=== PATIENT | male | born 1960 | race African-American/Black ===

== ENCOUNTER 2019-05-20 21:54 | Emergency (ER) | payer OTHER ==
[~2019-05-20] VITALS: Ht 175.3 cm; Wt 79.4 kg
--- NOTE | 2019-05-20 22:05 | NUR ---
PT BIB SELF C/O SI "I WANT TO SHOOT MY SELF." DENIES HI, PT IS AAOX4, NOT IN RESPIRATORY DISTRESS, V/S STABLE, KEPT RESTED AND COMFORTABLE, WILL CONTINUE TO MONITOR, SITTER AT BEDSIDE.
--- NOTE | 2019-05-20 22:06 | NUR ---
PT CAME TO THE ED C/O SI W/ A PLAN TO SHOOT HIMSELF. DENIES HI. PT AAOX4, VSS, RR EVEN AND UNLABORED ON RA W NAD NOTED. PT PLACED ON SUICIDE PRECAUTIONS. SITTER AT BEDSIDE FOR SAFETY. WILL CONTINUE TO MONITOR
--- NOTE | 2019-05-20 22:08 | NUR ---
URINE SPECIMEN COLLECTED AND SENT TO LAB
--- NOTE | 2019-05-20 22:12 | NUR ---
SECURITY AT BEDSIDE FOR WANDING
[2019-05-20 22:18] LABS: APPEARANCE,URINE Clear (CLEAR); BILIRUBIN,URINE Negative (NEGATIVE); BLOOD, URINE Trace-lysed Ery/uL (NEGATIVE); COLOR,URINE Yellow (YELLOW); KETONES,URINE Negative (NEGATIVE); LEUKOCYTE ESTERASE ,URINE Negative (NEGATIVE); NITRITE, URINE Negative (NEGATIVE); PH,URINE 5.5 (5.0-8.0); PROTEIN,URINE Negative (NEGATIVE); UGLUCOSE Negative (NEGATIVE); UROBILINOGEN,URINE 0.2 EU/dL (0.2)
--- NOTE | 2019-05-20 22:20 | NUR ---
ER PHLEB AT BEDSIDE FOR BLOOD DRAW.
[2019-05-20 22:30] LABS: BASOPHILS # (AUTO) 0.1 /CMM (0.0-0.2); EOSINOPHILS % (AUTO) 1.3 % (0.0-6.0); HEMATOCRIT 43 % (39-51); HEMOGLOBIN 14.6 g/dL (13.5-17.5); LYMPHOCYTES # (AUTO) 2.6 /CMM (0.8-4.8); LYMPHOCYTES % (AUTO) 33.2 % (20.0-44.0); MEAN CORPUSCULAR HGB CONC 34 g/dl (31.0-36.0); MEAN CORPUSCULAR VOLUME 78 fL (80-96); MONOCYTES # (AUTO) 1.4 /CMM (0.1-1.30); MONOCYTES % (AUTO) 18.3 % (2.0-12.0); NEUTROPHILS # (AUTO) 3.6 /CMM (1.8-8.9); NEUTROPHILS % (AUTO) 46.2 % (43.0-81.0); PLATELET COUNT (AUTO) 250 /CMM (150-450); RED BLOOD CELL COUNT(AUTO) 5.45 MIL/uL (4.5-6.0); WHITE BLOOD COUNT (AUTO) 7.9 K/uL (4.3-11.0)
[2019-05-20 22:32] LABS: CALCIUM, SERUM 9.1 mg/dL (8.5-10.1); CARBON DIOXIDE 32 mmol/L (21-32); CHLORIDE 102 mmol/L (98-107); CREATININE 1.5 mg/dL (0.6-1.3); GLUCOSE 115 mg/dL (74-106); POTASSIUM 4.2 mmol/L (3.5-5.1); SODIUM SERUM 140 mmol/L (136-145); UREA NITROGEN, BLOOD 19 mg/dL (7-18)
[2019-05-20 22:37] LABS: ALANINE AMINOTRANSFERASE 35 U/L (12-78); ALCOHOL, BLOOD < 3 mg/dL (0-0); ALKALINE PHOSPHATASE 64 U/L (46-116); ASPARTATE AMINOTRANSFERASE 20 U/L (15-37); BILIRUBIN,DIRECT 0.1 mg/dL (0.0-0.2); BILIRUBIN,TOTAL 0.5 mg/dL (0.2-1.0); TOTAL PROTEIN, SERUM 8.2 g/dL (6.4-8.2)
[2019-05-20 22:38] LABS: ACETAMINOPHEN 0 ug/ml (10-30); SALICYLATE 1.1 mg/dL (2.8-20.0)
[2019-05-20 22:39] LABS: BACTERIA,URINE Few /HPF (None Seen); MUCUS,URINE Few /LPF (None Seen); SQUAMOUS EPITHELIAL CELL,UR Rare /HPF (None Seen)
[2019-05-20 23:09] LABS: LYMPHOCYTES % (MANUAL) 35 % (16-48); MONOCYTES % (MANUAL) 22 % (0-11.0)
[2019-05-20 23:10] LABS: EOSINOPHILS % (MANUAL) 2 % (0-4); NEUTROPHILS % (MANUAL) 41 (42-76)
--- NOTE | 2019-05-21 02:09 | NUR ---
PT RESTING COMFORTABLY IN BED. VSS. NO ACUTE DISTRESS NOTED. SITTER AT BEDSIDE FOR SAFETY. WILL CONTINUE TO MONITOR
[2019-05-21 02:11] VITALS: BP 132/82
--- NOTE | 2019-05-21 02:30 | NUR ---
Pt accepted to [facility] by Dr Patterson. Unit 1, Room 106-A. # for report [phone]
--- NOTE | 2019-05-21 02:35 | NUR ---
CALLED CALL THE CAR FOR BLS TRANSPORT TO [facility]. ETA 1.5-2 HRS.
--- NOTE | 2019-05-21 02:41 | NUR ---
REPORT GIVEN TO JIAN ESCOBAR Addendum: 05/21/19 at 0242 by MEG REPORT GIVEN TO JIAN ESCOBAR
--- NOTE | 2019-05-21 03:16 | NUR ---
REPORT GIVEN TO EMS. PT TRANSFERRED IN [facility] IN STABLE CONDITION
== END 2019-05-21 03:18 ==
LOC: ER 21:57
DX: F32.9 Major depressive disorder, single episode, unspecified (principal); R45.851 Suicidal ideations; N28.9 Disorder of kidney and ureter, unspecified; F17.200 Nicotine dependence, unspecified, uncomplicated; F14.10 Cocaine abuse, uncomplicated; Z59.0 Homelessness
CPT/HCPCS: 36415; 80048; 80076; 80305; 80307; 80329; 81001; 85025; 99285; 99406; G0480; 81000-TC

== ENCOUNTER 2019-07-31 11:14 | Emergency (ER) | payer OTHER ==
[~2019-07-31] VITALS: Ht 180.3 cm; Wt 83.9 kg
--- NOTE | 2019-07-31 11:58 | NUR ---
CAME IN FOR HEARING VOICES TELLING HIM TO JUMP OFF A FREEWAY OVERPASS,WANTS TO COME IN VOLUNTARILY TO PSYCH FACILITY, TO ER BED 11, HOOKED TO MONITOR, CHANGED TO HOSP GOWN, WARM BLANKET PROVIDED, AWAITING MD BAH. SITTER AT BEDSIDE FOR SAFETY
--- NOTE | 2019-07-31 12:00 | NUR ---
DR NORMAN AT BEDSIDE
--- NOTE | 2019-07-31 12:05 | NUR ---
FEDERICO PRESTON CALLED FOR ASSISTANCE IN [place] TO PSYCH FACILITY
--- NOTE | 2019-07-31 12:14 | NUR ---
LITHOGRAPHER APPRENTICE received a call from ED CRN Remberto in regards to pt seeking voluntary psychiatric hospitalization. LITHOGRAPHER APPRENTICE called [facility] and initiated voluntary psychiatric hospitalization. LITHOGRAPHER APPRENTICE to send clinicals once labs are done and pt is medically cleared for psychiatric admission.
[2019-07-31 12:27] LABS: APPEARANCE,URINE Clear (CLEAR); BILIRUBIN,URINE Negative (NEGATIVE); BLOOD, URINE Negative Ery/uL (NEGATIVE); COLOR,URINE Yellow (YELLOW); KETONES,URINE Negative (NEGATIVE); LEUKOCYTE ESTERASE ,URINE Negative (NEGATIVE); NITRITE, URINE Negative (NEGATIVE); PH,URINE 5.5 (5.0-8.0); PROTEIN,URINE Negative (NEGATIVE); UGLUCOSE Negative (NEGATIVE); UROBILINOGEN,URINE 0.2 EU/dL (0.2)
[2019-07-31 12:33] LABS: BASOPHILS # (AUTO) 0.1 /CMM (0.0-0.2); BASOPHILS % (AUTO) 0.8 % (0.0-2.0); EOSINOPHILS % (AUTO) 2.7 % (0.0-6.0); HEMATOCRIT 43 % (39-51); HEMOGLOBIN 14.4 g/dL (13.5-17.5); LYMPHOCYTES # (AUTO) 3.1 /CMM (0.8-4.8); LYMPHOCYTES % (AUTO) 46.5 % (20.0-44.0); MEAN CORPUSCULAR HGB CONC 34 g/dl (31.0-36.0); MEAN CORPUSCULAR VOLUME 80 fL (80-96); MONOCYTES # (AUTO) 0.7 /CMM (0.1-1.30); MONOCYTES % (AUTO) 10.6 % (2.0-12.0); NEUTROPHILS # (AUTO) 2.6 /CMM (1.8-8.9); NEUTROPHILS % (AUTO) 39.4 % (43.0-81.0); PLATELET COUNT (AUTO) 252 /CMM (150-450); RED BLOOD CELL COUNT(AUTO) 5.34 MIL/uL (4.5-6.0); WHITE BLOOD COUNT (AUTO) 6.6 K/uL (4.3-11.0)
[2019-07-31 12:42] LABS: CALCIUM, SERUM 8.9 mg/dL (8.5-10.1); CREATININE 1.3 mg/dL (0.6-1.3); POTASSIUM 4.1 mmol/L (3.5-5.1)
[2019-07-31 12:47] LABS: ALBUMIN 3.5 g/dL (3.4-5.0); BILIRUBIN,DIRECT 0.1 mg/dL (0.0-0.2); BILIRUBIN,TOTAL 0.2 mg/dL (0.2-1.0); SALICYLATE 1.7 mg/dL (2.8-20.0); TOTAL PROTEIN, SERUM 7.3 g/dL (6.4-8.2)
--- NOTE | 2019-07-31 14:11 | NUR ---
FOOD TRAY PROVIDED, TOLERATING PO WELL.
--- NOTE | 2019-07-31 15:48 | NUR ---
PNEUMATIC JACK OPERATOR faxed clinicals to [facility] intake for voluntary hospitalizations.
--- NOTE | 2019-07-31 16:06 | NUR ---
PATIENT IN BED AWAKE, WATCHING TELEVISION, HOOKED TO MONITOR, SITTER AT BEDSIDE FOR SAFETY. WILL CONTINUE TO MONITOR ACCORDINGLY
--- NOTE | 2019-07-31 17:38 | NUR ---
CALLED [facility] [phone] GOING TO [place] FIRST THEN HEADED HERE.
--- NOTE | 2019-07-31 17:59 | NUR ---
PATIENT IN BED AWAKE, WATCHING TELEVISION. HOOKED TO MONITOR. VSS. SITTER AT BEDSIDE. WILL CONTINUE TO MONITOR ACCORDINGLY.
--- NOTE | 2019-07-31 19:02 | NUR ---
PATIENT IN BED AWAKE, WATCHING TELEVISION. HOOKED TO MONITOR. VSS. SITTER AT BEDSIDE. WILL CONTINUE TO MONITOR ACCORDINGLY.
--- NOTE | 2019-07-31 19:27 | NUR ---
REPORT GIVEN TO TATE VILLAR FOR VAN
--- NOTE | 2019-07-31 20:15 | NUR ---
CRISIS JUNIOR HIGH SCHOOL TEACHER, PINKY AT BEDSIDE
--- NOTE | 2019-07-31 20:55 | NUR ---
PT ACCEPTED AT [facility] DR. huang / DR roberts
--- NOTE | 2019-07-31 22:17 | NUR ---
PT RESTING COMFORTABLY IN BED. FOOD PROVIDED. NO ACUTE DISTRESS NOTED. SITTER AT BEDSIDE FOR SAFETY.
--- NOTE | 2019-08-01 00:25 | NUR ---
[facility] 60-90 MINUTES
--- NOTE | 2019-08-01 00:39 | NUR ---
CALL FROM CALL THE CAR. NO AVAILABLE AMBULANCE UNTIL 1100
--- NOTE | 2019-08-01 01:54 | NUR ---
[phone] QEI [phone] FOR REPORT.
--- NOTE | 2019-08-01 06:11 | NUR ---
PT RESTING COMFORTABLY IN BED. VSS. NO ACUTE DISTRESS NOTED. SITTER AT BEDSIDE FOR SAFETY. WILL CONTINUE TO MONITOR
--- NOTE | 2019-08-01 07:32 | NUR ---
endorsement received from erin milian for greg
--- NOTE | 2019-08-01 08:51 | NUR ---
breakfast tray provided, patient tolerating PO well
--- NOTE | 2019-08-01 09:49 | NUR ---
CALLED CALL THE CAR FOR CONFIRMATION OF CUSTOMER SUCCESS SPECIALIST. [facility] WILL BE PICKING UP THE PT AT 1100.
--- NOTE | 2019-08-01 09:52 | NUR ---
tried to call so johnny magana for report, was placed on hold, no answer
--- NOTE | 2019-08-01 11:16 | NUR ---
patient in bed awake, watching television, hooked to monitor, VSS. sitter at bedside for safety, will continue to monitor
--- NOTE | 2019-08-01 12:41 | NUR ---
[facility] in stable condition. Patient will be brought to [facility].
[2019-08-01 12:42] VITALS: BP 105/58
--- NOTE | 2019-08-01 12:49 | NUR ---
report given to Minesh VILLAR of [facility]
== END 2019-08-01 12:45 ==
LOC: ER 11:19
DX: R45.851 Suicidal ideations (principal); F29 Unspecified psychosis not due to a substance or known physiological condition
CPT/HCPCS: 36415; 80048; 80076; 80305; 80307; 80329; 81001; 85025; 99285; G0480; 81000-TC

== ENCOUNTER 2019-08-12 01:40 | Emergency (ER) | payer OTHER ==
[~2019-08-12] VITALS: Ht 180.3 cm; Wt 81.6 kg
--- NOTE | 2019-08-12 01:51 | NUR ---
PT CAME TO THE ED C/O SI W/ A PLAN TO JUMP OFF THE FREEWAY. NO HI. PT AAOX4, VSS, RESPIRATIONS EVEN AND UNLABORED ON RA W/ NAD NOTED. PT CHANGED INTO GOWN, BELONGINGS PLACED TO LOCKER, SUICIDE PRECAUTIONS IMPLEMENTED. SITTER AT BEDSIDE FOR SAFETY.
--- NOTE | 2019-08-12 01:53 | NUR ---
URINE SENT TO LAB
--- NOTE | 2019-08-12 02:07 | NUR ---
PERSONAL INJURY SPECIALIST AT BEDSIDE FOR LABS
[2019-08-12 02:13] LABS: APPEARANCE,URINE Clear (CLEAR); BILIRUBIN,URINE SMALL (NEGATIVE); BLOOD, URINE Trace-lysed Ery/uL (NEGATIVE); COLOR,URINE Orange (YELLOW); KETONES,URINE Negative (NEGATIVE); LEUKOCYTE ESTERASE ,URINE Negative (NEGATIVE); NITRITE, URINE Negative (NEGATIVE); PH,URINE 5.5 (5.0-8.0); PROTEIN,URINE 100 mg/dl (NEGATIVE); UGLUCOSE Negative (NEGATIVE)
[2019-08-12 02:30] LABS: BASOPHILS # (AUTO) 0.1 /CMM (0.0-0.2); BASOPHILS % (AUTO) 0.7 % (0.0-2.0); HEMATOCRIT 44 % (39-51); HEMOGLOBIN 15.1 g/dL (13.5-17.5); LYMPHOCYTES # (AUTO) 3.1 /CMM (0.8-4.8); LYMPHOCYTES % (AUTO) 34.4 % (20.0-44.0); MEAN CORPUSCULAR HGB CONC 34 g/dl (31.0-36.0); MEAN CORPUSCULAR VOLUME 79 fL (80-96); MONOCYTES # (AUTO) 1.3 /CMM (0.1-1.30); MONOCYTES % (AUTO) 14.1 % (2.0-12.0); NEUTROPHILS # (AUTO) 4.3 /CMM (1.8-8.9); NEUTROPHILS % (AUTO) 47.8 % (43.0-81.0); PLATELET COUNT (AUTO) 271 /CMM (150-450); RED BLOOD CELL COUNT(AUTO) 5.61 MIL/uL (4.5-6.0)
[2019-08-12 02:33] LABS: CALCIUM, SERUM 9.3 mg/dL (8.5-10.1); CARBON DIOXIDE 28 mmol/L (21-32); CHLORIDE 100 mmol/L (98-107); CREATININE 1.4 mg/dL (0.6-1.3); GLUCOSE 104 mg/dL (74-106); POTASSIUM 3.6 mmol/L (3.5-5.1); SODIUM SERUM 138 mmol/L (136-145); UREA NITROGEN, BLOOD 18 mg/dL (7-18)
[2019-08-12 02:38] LABS: ACETAMINOPHEN < 2 ug/ml (10-30); ALANINE AMINOTRANSFERASE 27 U/L (12-78); ALBUMIN 4.2 g/dL (3.4-5.0); ALCOHOL, BLOOD < 3 mg/dL (0-0); ALKALINE PHOSPHATASE 63 U/L (46-116); ASPARTATE AMINOTRANSFERASE 24 U/L (15-37); BILIRUBIN,DIRECT 0.3 mg/dL (0.0-0.2); BILIRUBIN,TOTAL 1.1 mg/dL (0.2-1.0); SALICYLATE 1.9 mg/dL (2.8-20.0); TOTAL PROTEIN, SERUM 8.8 g/dL (6.4-8.2)
[2019-08-12 02:45] LABS: BACTERIA,URINE Few /HPF (None Seen); RBC,URINE 0-2 /HPF (0-2); SQUAMOUS EPITHELIAL CELL,UR Few /HPF (None Seen); WBC,URINE 0-2 /HPF (0-3)
[2019-08-12 02:46] LABS: MUCUS,URINE Many /LPF (None Seen)
--- NOTE | 2019-08-12 03:28 | NUR ---
PT RESTING IN BED COMFORTABLY. VSS. NO ACUTE DISTRESS NOTED. SITTER AT BEDSIDE FOR SAFETY. WILL CONTINUE TO MONITOR
--- NOTE | 2019-08-12 04:19 | NUR ---
Patient accepted to [facility] by Dr Patterson. unit 2, # for report. [phone]
--- NOTE | 2019-08-12 04:24 | NUR ---
REPORT GIVEN TO JIAN IRVIN @ [facility]
--- NOTE | 2019-08-12 06:05 | NUR ---
PT ASLEEP. VSS. NO ACUTE DISTRESS NOTED. SITTER AT BEDSIDE FOR SAFETY. WILL CONTINUE TO MONITOR
--- NOTE | 2019-08-12 06:57 | NUR ---
ATTEMPTED TO CALL FOR TRANSPORT AGAIN
--- NOTE | 2019-08-12 07:09 | NUR ---
Call the car called for transport. #[phone]. pending eta
--- NOTE | 2019-08-12 07:14 | NUR ---
[facility]A [facility] 20 MINS
[2019-08-12 07:35] VITALS: BP 128/81
--- NOTE | 2019-08-12 07:37 | NUR ---
patient picked up by private ambulance going to [facility], in no distress, denies any pain at this time. All belongings given to patient.
== END 2019-08-12 07:36 ==
LOC: ER 01:43
DX: F32.9 Major depressive disorder, single episode, unspecified (principal); R45.851 Suicidal ideations; F25.0 Schizoaffective disorder, bipolar type; F14.10 Cocaine abuse, uncomplicated; F17.210 Nicotine dependence, cigarettes, uncomplicated
CPT/HCPCS: 36415; 80048; 80076; 80305; 80307; 80329; 81001; 85025; 99285; 99406; G0480; 81000-TC

== ENCOUNTER 2020-04-22 19:24 | Emergency (ER) | payer OTHER ==
[~2020-04-22] VITALS: Ht 180.3 cm; Wt 81.6 kg
--- NOTE | 2020-04-22 22:20 | NUR ---
URINE COLLECTED, SENT TO LAB.
--- NOTE | 2020-04-22 22:20 | NUR ---
POWER ELECTRONICS RESEARCH ENGINEER AT BEDSIDE FOR LABS
--- NOTE | 2020-04-22 22:20 | NUR ---
CALLED FOR COVID SWAB
--- NOTE | 2020-04-22 22:26 | NUR ---
COVID SWAB SENT TO LAB
[2020-04-22 22:32] LABS: BILIRUBIN,URINE NEGATIVE (NEGATIVE); COLOR,URINE YELLOW (YELLOW); LEUKOCYTE ESTERASE ,URINE NEGATIVE (NEGATIVE); NITRITE, URINE NEGATIVE (NEGATIVE); PROTEIN,URINE NEGATIVE (NEGATIVE); UGLUCOSE NEGATIVE (NEGATIVE); UROBILINOGEN,URINE 0.2 EU/dL (0.2)
[2020-04-22 22:33] LABS: BASOPHILS # (AUTO) 0.1 /CMM (0.0-0.2); BASOPHILS % (AUTO) 0.5 % (0.0-2.0); EOSINOPHILS % (AUTO) 3.1 % (0.0-6.0); HEMATOCRIT 43 % (39-51); HEMOGLOBIN 14.7 g/dL (13.5-17.5); LYMPHOCYTES # (AUTO) 3.2 /CMM (0.8-4.8); LYMPHOCYTES % (AUTO) 27.6 % (20.0-44.0); MEAN CORPUSCULAR HGB CONC 34 g/dl (31.0-36.0); MEAN CORPUSCULAR VOLUME 79 fL (80-96); MONOCYTES # (AUTO) 1.4 /CMM (0.1-1.30); MONOCYTES % (AUTO) 11.9 % (2.0-12.0); NEUTROPHILS # (AUTO) 6.7 /CMM (1.8-8.9); NEUTROPHILS % (AUTO) 56.9 % (43.0-81.0); PLATELET COUNT (AUTO) 274 /CMM (150-450); RED BLOOD CELL COUNT(AUTO) 5.44 MIL/uL (4.5-6.0); WHITE BLOOD COUNT (AUTO) 11.7 K/uL (4.3-11.0)
[2020-04-22 22:41] LABS: CALCIUM, SERUM 9.4 mg/dL (8.5-10.1); CARBON DIOXIDE 30 mmol/L (21-32); CHLORIDE 104 mmol/L (98-107); CREATININE 1.2 mg/dL (0.6-1.3); GLUCOSE 85 mg/dL (74-106); POTASSIUM 4.8 mmol/L (3.5-5.1); SODIUM SERUM 141 mmol/L (136-145); UREA NITROGEN, BLOOD 14 mg/dL (7-18)
[2020-04-22 22:47] LABS: ALANINE AMINOTRANSFERASE 35 U/L (12-78); ALCOHOL, BLOOD < 3 mg/dL (0-0); ALKALINE PHOSPHATASE 64 U/L (46-116); ASPARTATE AMINOTRANSFERASE 27 U/L (15-37); BILIRUBIN,DIRECT 0.2 mg/dL (0.0-0.2); BILIRUBIN,TOTAL 0.6 mg/dL (0.2-1.0); TOTAL PROTEIN, SERUM 8.3 g/dL (6.4-8.2)
[2020-04-22 22:48] LABS: ACETAMINOPHEN 0 ug/ml (10-30)
[2020-04-22 22:50] LABS: BACTERIA,URINE None seen /HPF (None Seen); MUCUS,URINE Few /LPF (None Seen); RBC,URINE 0-2 /HPF (0-2); SQUAMOUS EPITHELIAL CELL,UR Few /HPF (None Seen)
--- NOTE | 2020-04-22 23:00 | NUR ---
Call from lab. Rapid covid negative.
--- NOTE | 2020-04-22 23:31 | NUR ---
Facesheet and clinicals faxed to Monica Valentine.
--- NOTE | 2020-04-23 07:09 | NUR ---
Pt accepted to [facility]. Dr Murillo, # for report [phone]
--- NOTE | 2020-04-23 07:11 | NUR ---
CALLED [facility] FOR TRANSPORT TO [facility]. ETA 30-45 MINUTES.
--- NOTE | 2020-04-23 07:21 | NUR ---
CALLED FOR REPORT, WAS TOLD TO CALL BACK
--- NOTE | 2020-04-23 08:10 | NUR ---
CALLED [facility], CHARGE NURSE BESSY UNABLE TO TAKE REPORT AT THIS TIME. GAVE MY CALL BACK NUMBER FOR REPORT AND INFORMED THEM THAT THE TRANSPORTATION IS HERE.
[2020-04-23 08:12] VITALS: BP 145/83
--- NOTE | 2020-04-23 08:12 | NUR ---
REPORT GIVEN TO PATTERN FINISHER. PATIENT A/OX4, IN STABLE CONDITION, WILL BE TRANSFERRED TO [facility].
--- NOTE | 2020-04-23 08:43 | NUR ---
report given to Benita at [facility]
== END 2020-04-23 08:19 ==
LOC: ER 19:31
DX: R45.851 Suicidal ideations (principal); F19.10 Other psychoactive substance abuse, uncomplicated; Z82.49 Family history of ischemic heart disease and other diseases of the circulatory system; R82.998 Other abnormal findings in urine; F25.9 Schizoaffective disorder, unspecified; Z20.822 Contact with and (suspected) exposure to COVID-19
CPT/HCPCS: 36415; 80048; 80076; 80299; 80307; 80320; 81001; 85025; 87086; 87426; 99285; C9803; G0480

== ENCOUNTER 2020-08-03 07:57 | Emergency (ER) | payer OTHER ==
[~2020-08-03] VITALS: Ht 180.3 cm; Wt 83.9 kg
--- NOTE | 2020-08-03 08:00 | NUR ---
PT SELF PRESENTS TO ED, AMBULATORY W/ STYEADY GAIT C/O DEPRESSION, SUICIDAL W. PLAN TO "CUT HIS THROAT" PT IS COOPERATIVE TO STAFF. DENIES ANY PAIN OR DISCOMFORT. PT STATES THAT HE WANTS TO GO ON [facility]OLUNTARY PS[facility]CH [facility] STABLE VITALS. AWAITING MD BAH.
--- NOTE | 2020-08-03 08:02 | NUR ---
DR MUÑOZ AT BEDSIDE FOR EVAL.
--- NOTE | 2020-08-03 08:19 | NUR ---
CHRONIC DISEASE EPIDEMIOLOGIST AT BEDSIDE FOR BLOOD DRAW.
[2020-08-03 08:25] LABS: BASOPHILS # (AUTO) 0.1 K/uL (0.0-0.2); BASOPHILS % (AUTO) 0.8 % (0.0-2.0); EOSINOPHILS % (AUTO) 0.5 % (0.0-6.0); HEMATOCRIT 41 % (39-51); LYMPHOCYTES # (AUTO) 2.1 K/uL (0.8-4.8); LYMPHOCYTES % (AUTO) 24.5 % (20.0-44.0); MEAN CORPUSCULAR HGB CONC 34 g/dl (31.0-36.0); MEAN CORPUSCULAR VOLUME 80 fL (80-96); MONOCYTES # (AUTO) 0.9 K/uL (0.1-1.30); NEUTROPHILS # (AUTO) 5.4 K/uL (1.8-8.9); NEUTROPHILS % (AUTO) 63.2 % (43.0-81.0); PLATELET COUNT (AUTO) 249 K/uL (150-450); RED BLOOD CELL COUNT(AUTO) 5.13 MIL/uL (4.5-6.0); WHITE BLOOD COUNT (AUTO) 8.5 K/uL (4.3-11.0)
[2020-08-03 08:28] LABS: BILIRUBIN,URINE Negative (NEGATIVE); COLOR,URINE YELLOW (YELLOW); LEUKOCYTE ESTERASE ,URINE Negative (NEGATIVE); NITRITE, URINE Negative (NEGATIVE); PH,URINE 7.5 (5.0-8.0); PROTEIN,URINE Trace mg/dl (NEGATIVE); UGLUCOSE Negative (NEGATIVE); UROBILINOGEN,URINE 0.2 EU/dL (0.2)
[2020-08-03 08:34] LABS: CALCIUM, SERUM 9.4 mg/dL (8.5-10.1); CARBON DIOXIDE 31 mmol/L (21-32); CHLORIDE 104 mmol/L (98-107); CREATININE 1.2 mg/dL (0.6-1.3); GLUCOSE 104 mg/dL (74-106); POTASSIUM 4.7 mmol/L (3.5-5.1); SODIUM SERUM 140 mmol/L (136-145); UREA NITROGEN, BLOOD 15 mg/dL (7-18)
[2020-08-03 08:39] LABS: BACTERIA,URINE None seen /HPF (None Seen); RBC,URINE NONE SEEN /HPF (0-2); SQUAMOUS EPITHELIAL CELL,UR Rare /HPF (None Seen); WBC,URINE 0-2 /HPF (0-3)
[2020-08-03 08:46] LABS: ALANINE AMINOTRANSFERASE 33 U/L (12-78); ALBUMIN 3.8 g/dL (3.4-5.0); ALKALINE PHOSPHATASE 57 U/L (46-116); ASPARTATE AMINOTRANSFERASE 24 U/L (15-37); BILIRUBIN,DIRECT 0.1 mg/dL (0.0-0.2); BILIRUBIN,TOTAL 0.2 mg/dL (0.2-1.0)
[2020-08-03 08:48] LABS: ACETAMINOPHEN 0 ug/ml (10-30); ALCOHOL, BLOOD < 3 mg/dL (0-0)
--- NOTE | 2020-08-03 11:05 | NUR ---
Plan: [facility]ORY referred pt. to [facility] [[address] [place] [address] FAX:[phone]] for inpatient psychiatric treatment.
--- NOTE | 2020-08-03 11:05 | NUR ---
SS Consult: SS Consult requested for SI, Homelessness, and drug use. The pt. is a 59 year old black male who presents to the ED with C/O SI w/plan to "cut his throat". The pt. appears unkempt, A&O X4 and makes good eye contact. Pt.'s mood is euthymic. The pt. states he has been experiencing SI since yesterday and has a plan to "cut my throat". Per pt., he is experiencing AH that tell him, "that I am no good and I do not deserve to live". GLORY offered pt. voluntary admission to a psych facility for treatment and pt. is agreeable. Pt. states he has been homeless for the past 6 months [address]. Pt. states denies ETOH use and admits using Cocaine 2 days ago and states he does not use often. Pt. states he has a Hx. of Schizoaffective disorder and is currently on Seroquel, Buspar and Prozac. Pt. denies HI and denies visual hallucinations. Plan: SW referred pt. to [facility] [[address] [place] [address] FAX:[phone]] for inpatient psychiatric treatment. Patient signed homeless waiver & it was placed in the pt.'s chart. SW provided pt. with the following homeless resources and pt. accepted them: Substance Abuse resources provided included: [facility] Substance Abuse Self-Helpline (SAS) ; CRI -HELP 98581 [facility]. [place] 9[address] ; [facility] [address]22 [facility] [address] ; [facility] Rehabilitation Program 03074 [facility] [address] ; [facility] 400 [facility] [address] ; [facility] 7210 [facility] [address] ; [facility] 909 [facility] [phone] ; [facility] Substance Abuse Helpline(SAS)-[facility] ; Action [facility] ; [facility] [place]; [facility] [place]; Cri-Help [place]; I-ADARP Inter Agency Drug Abuse Recovery [place]; [facility]; [place] [place] [facility] Start; [facility] [place]; [facility], [facility] Joseline Benson; Alcoholics Anonymous -SFV; Vo-Tuba-Wnliazm ; Marijuana Anonymous -SFV; Narcotics Anonymous www.na.org; Year-round shelters: [place] [address] [place], [place] [address] ; [facility] [facility] [place] [address] [place] [address]; [place] [facility] Phwtfhe8106 [facility] [address] Winter Shelters: Zac BarstowSCL [facility] Provider: Yasmany of [place] Address: [address] [facility] [place], [address] # of Beds: 47 Population Served: [facility] 6 | [facility] Debbie Booker [place] Provider: Home at Last Address: [address] [place] [address], [address] # of Beds: 66 Population Served: Kathleen Wiren Board [place] Provider: First to Serve Address: [address]01 [facility], [address] # of Beds: 56 Population Served: Kathleen Lee Provider: [facility]. [facility] Address: 9171 [facility], [address] # of Beds: 49 Population Served: Coed SPA 8 | [place] [address] Provider: First to Serve Address: 3535 [facility] Medical CenterJesse Leyva501 # of Beds: 37 Population Served: Coed Hygiene: [facility] [facility]: [address] [place] [address]. [place] ; [place] [facility] [address]509 [facility] Rescommunity [facility] ; [facility] [address] [place] Avshea Holloway Monika . Food Resources: [place] [facility] at [facility]- [address] [place]; Meet Each Need with Dignity ([facility]) 28072 [facility] NuysDelia Streeter; [facility] Food Pantry 0219 [facility]; [facility] 8525 [facility] Er. Mental Health resources provided: [facility] [address] [place], [place] [id number] ; [facility] Mental Health Center, Inc. 96599 [facility] [address], [place], [place] [phone] ; [facility] [address]17 Patrick Afb, [place] [phone] ; [facility] [address] [place], [place] [address] Healthcare Clinics: [facility] 6551 [facility], [address] [place]. [place] ; [facility] [address] [facility] [address] [place] [address]; [facility] Health [place] [address] [facility]. [place] [phone]) [phone] Counseling--Outpatient [facility] 4412 [facility], [facility] A [place], [place] [address] (Specializes in in-depth psychotherapy for emotional distress: anxiety, depression, interpersonal conflicts, life transitions, childhood abuse) [address] [place] [address] (Assist with solving problem marital difficulties, separation & divorce, aging parents, & grief, chronic & terminal illness) [facility] [address] [place] [address] (Deal with loss & grief, anxiety, marital difficulties) Homebound/Mental Health Services [address] [place], [place] [address] (Provide in-home mental services to people who are incapable of leaving their homes) Organization for Needs of the Elderly Senior Service/Resource Center [address] [place] [address] [facility] 6514 Melanie Chicas. Alfie NavarroEUL[place], [place] [phone] PSYCHIATRIC OUTPATIENT SERVICES [facility] Partial Hospitalization and Intensive Outpatient Program (Managed Care and Chaplin Only)[address]9918 Rick Jaime. [facility] [phone] [facility] Partial Hospitalization and Outpatient [id number] [address] [place], [place] [phone] [facility] Partial Hospitalization and Outpatient [id number] Alfie Navarro edna. [place], [place] [phone] ALFIE [facility] Mental Health [place] [id number] [address] [place], [place] [phone] [facility] Alfie Navarro Partial Hospitalization and Outpatient [id number] Emelita [facility] Alfie Navarro [phone]
--- NOTE | 2020-08-03 11:51 | NUR ---
[facility] CALLED ACCEPTED AFTER 1400
--- NOTE | 2020-08-03 12:04 | NUR ---
Patient Tranfers to outside Facility Physician:Dr. Hewitt Location:[facility]ki brooks number report [phone] send patient after 2pm
--- NOTE | 2020-08-03 13:20 | NUR ---
PT ACCEPTED TO [facility] UNDER DR. NOEL CALL [phone] X [phone] ELIZABETH
[2020-08-03 13:30] VITALS: BP 125/86
--- NOTE | 2020-08-03 13:32 | NUR ---
CALLED [id number] [phone] [facility] REF #[id number]
--- NOTE | 2020-08-03 13:40 | NUR ---
REPORT GIVEN TO MICAH VILLAR AT [facility]. AWAITING TRANSPORT AMBULANCE.
--- NOTE | 2020-08-03 14:34 | NUR ---
[facility] CALL[facility] WILL TRANSPORT ETA 60-75MINS PER LETITIA
--- NOTE | 2020-08-03 15:13 | NUR ---
TRANSPORTED TO [facility] ST[facility] CONDITION.
== END 2020-08-03 15:16 ==
LOC: ER 08:01
DX: F25.9 Schizoaffective disorder, unspecified (principal); R45.851 Suicidal ideations; F14.10 Cocaine abuse, uncomplicated; Z20.822 Contact with and (suspected) exposure to COVID-19
CPT/HCPCS: 36415; 80048; 80076; 80143; 80307; 80320; 81001; 85025; 87426; 99285; C9803; G0480

== ENCOUNTER 2020-08-18 22:59 | Emergency (ER) | payer OTHER ==
[~2020-08-18] VITALS: Ht 180.3 cm; Wt 83.9 kg
--- NOTE | 2020-08-19 00:45 | NUR ---
PRESENTED TO THE ER FOR C/O HEARING VOICES TELLING HIM TO KILL HIMSELF. PT IS REQUESTIMG MEDICAL CLEARANCE FOR VOLUNTARY PSYCH SDMISSION. AMBULATORY WITH STEADY GAITS. URINE SAMPLE OBTAINED. PT REMAINED ON CLOSE SUPERVISION,. SI PRECAUTION IMPLEMENTED. WILL CONT TO MONITOR,
[2020-08-19 00:56] LABS: BILIRUBIN,URINE SMALL (NEGATIVE); COLOR,URINE YELLOW (YELLOW); LEUKOCYTE ESTERASE ,URINE Negative (NEGATIVE); NITRITE, URINE Negative (NEGATIVE); PH,URINE 5.5 (5.0-8.0); PROTEIN,URINE 30 mg/dl (NEGATIVE); UGLUCOSE Negative (NEGATIVE); UROBILINOGEN,URINE 0.2 EU/dL (0.2)
--- NOTE | 2020-08-19 00:56 | NUR ---
COVID SWAB COLLECTED AND SENT TO LAB
[2020-08-19 01:09] LABS: BASOPHILS # (AUTO) 0.1 K/uL (0.0-0.2); BASOPHILS % (AUTO) 1.1 % (0.0-2.0); EOSINOPHILS % (AUTO) 2.2 % (0.0-6.0); HEMATOCRIT 44 % (39-51); HEMOGLOBIN 14.9 g/dL (13.5-17.5); LYMPHOCYTES # (AUTO) 3.6 K/uL (0.8-4.8); LYMPHOCYTES % (AUTO) 37.3 % (20.0-44.0); MEAN CORPUSCULAR HGB CONC 34 g/dl (31.0-36.0); MEAN CORPUSCULAR VOLUME 80 fL (80-96); MONOCYTES # (AUTO) 1.6 K/uL (0.1-1.30); MONOCYTES % (AUTO) 17.2 % (2.0-12.0); NEUTROPHILS % (AUTO) 42.2 % (43.0-81.0); PLATELET COUNT (AUTO) 279 K/uL (150-450); RED BLOOD CELL COUNT(AUTO) 5.44 MIL/uL (4.5-6.0); WHITE BLOOD COUNT (AUTO) 9.6 K/uL (4.3-11.0)
[2020-08-19 01:30] LABS: ALANINE AMINOTRANSFERASE 29 U/L (12-78); ALBUMIN 4.2 g/dL (3.4-5.0); ALCOHOL, BLOOD < 3 mg/dL (0-0); ALKALINE PHOSPHATASE 65 U/L (46-116); ASPARTATE AMINOTRANSFERASE 25 U/L (15-37); BILIRUBIN,DIRECT 0.2 mg/dL (0.0-0.2); BILIRUBIN,TOTAL 0.9 mg/dL (0.2-1.0); CALCIUM, SERUM 9.2 mg/dL (8.5-10.1); CARBON DIOXIDE 29 mmol/L (21-32); CHLORIDE 101 mmol/L (98-107); CREATININE 1.5 mg/dL (0.6-1.3); GLUCOSE 92 mg/dL (74-106); POTASSIUM 4.5 mmol/L (3.5-5.1); SODIUM SERUM 138 mmol/L (136-145); TOTAL PROTEIN, SERUM 8.8 g/dL (6.4-8.2); UREA NITROGEN, BLOOD 16 mg/dL (7-18)
[2020-08-19 01:33] LABS: ACETAMINOPHEN 0 ug/ml (10-30)
--- NOTE | 2020-08-19 02:07 | NUR ---
faxed face sheet and clinicals to [facility]
--- NOTE | 2020-08-19 03:44 | NUR ---
ACCEPTED INTO [facility]. # FOR REPORT [phone] [id number]
[2020-08-19 04:20] LABS: BAND % (MANUAL) 2 % (0.0-5.0); LYMPHOCYTES % (MANUAL) 38 % (16-48); MONOCYTES % (MANUAL) 16 % (0-11.0); NEUTROPHILS % (MANUAL) 44 (42-76)
--- NOTE | 2020-08-19 05:43 | NUR ---
PT IS REFUSING TO GO TO [facility] AND REQUESTING TO GO TO [facility]. [facility] INTAKE MADE AWARE
--- NOTE | 2020-08-19 10:01 | NUR ---
PT ACCEPTED TO [facility]. ROOM ASSIGNMENT WILL BE GIVEN AFTER CALLING REPORT TO THIS NUMBER [phone].
--- NOTE | 2020-08-19 10:52 | NUR ---
REPORT GIVEN TO NURSE MERCHANT.
--- NOTE | 2020-08-19 11:00 | NUR ---
Pt. signed homeless waiver and it was placed in the chart.
--- NOTE | 2020-08-19 11:00 | NUR ---
SS Consult: SS Consult requested for SI & Homelessness. The pt. is a 59 year old Black male who presents to the ED with C/O SI and AH. The pt. appears disheveled, A&O X4 and makes poor eye contact. Pt.'s mood is dysphoric. The pt. states he is experiencing SI with PLAN TO "CUT MY THROAT". Pt. denies current HI and denies hallucinations. SW offered pt. voluntary admission to a psych facility for treatment and pt. is agreeable. Pt. states he has been experiencing homelessness for the past year. Pt. states he uses meth, cocaine and Cannabinoids. SW unable to understand pt. when requesting Psych Hx. Pt. states he is ambulatory and received food stamps and SSI. Plan: Pt. has been accepted to to [facility] [ FAX:[phone]] for inpatient psychiatric treatment. SW provided pt. with homeless, addiction and mental health resources and he accepted them : Substance Abuse resources provided included: [facility] Substance Abuse Self-Helpline ([facility]) ; CRI -HELP 12968 [facility]. [place] 9[address] ; [facility] [address]81 [facility] [address] ; [facility] Rehabilitation Program 78183 [facility] [address] ; [facility] 400 [facility] [address] ; [facility] Treatment [facility] 4940 [facility] [address]14[address] ; [facility] 909 [place] [facility] [address] ; [facility] Substance Abuse Helpline([facility])-[facility] ; Action [facility] ; [facility] [place]; [facility] [place]; Cri-Help [place]; I-ADARP Inter Agency Drug Abuse Recovery Alfie Navarro; [place] [facility] [place]; [facility]st[facility] medical center; [facility]; [facility]'s [place], Inc. Juan ManuelAd[facility]ist [facility]; Alcoholics Anonymous -SFV; Cv-Qxbw-Xdwhmkl ; Marijuana Anonymous -SFV; Narcotics Anonymous www.na.org; Year-round shelters: [place] [address] [place], [place] [phone] ; [facility] [place] [address] [place] [address]; [place] [facility] Kkwobth7944 [facility] [address] Winter Shelters: Zac Sheppard Leslie Provider: Yasmany of [facility] Address: [address] L[address]aDelia [place], [address] # of Beds: 47 Population Served: [facility] 6 | [facility] Debbie ChoudharyCone Health Med[facility] [place] Provider: Home at Last Address: [address], [address] # of Beds: 66 Population Served: [facility] DSO Interactive Leslie Provider: First to Serve Address: [address] [facility], [address] # of Beds: 56 Population Served: [facility] Robin NikitaDelia DavidsonDish Provider: [facility]/Ms. Pleitez House Address: 8917 [facility], [address] # of Beds: 49 Population Served: [facility] 8 | [facility] Provider: First to Serve Address: 3535 [facility], [address] # of Beds: 37 Population Served: [facility] Hygiene: Navos HealthCA: [address] Jean Paul Rosario ; [facility] Gorge[place] [address] [facility] ; [facility] [address] [place] [address]iva, [place] Ramon . Food Resources: [place] [facility] at [facility]- [address]. [place]; Meet Each Need with Dignity ([facility]) [address] [place]; [facility] Food Pantry 7669 [facility]; [facility] 4422 [facility] [place]. Mental Health resources provided: [facility] [address] [place], [place] [address] ; [facility] Mental Health Center, Inc. 40294 [facility] UN[address] 2, [place], [place] [phone] ; [facility] Care Center 55117 [facility] [place], [place] [phone] ; [facility] Center [place], [place] 1490[address] Healthcare Clinics: [facility] 6551 [facility], [address] [place]. [place] ; [facility] 6801 [facility] [address] [place] [address]; [facility] Health [place] [address] [facility]. [place] [phone]) [phone] Counseling--Outpatient [facility] 4419 [facility], [address] [place], [place] [address] (Specializes in in-depth psychotherapy for emotional distress: anxiety, depression, interpersonal conflicts, life transitions, childhood abuse) [facility] [address] [place] [address] (Assist with solving problem marital difficulties, separation & divorce, aging parents, & grief, chronic & terminal illness) [facility] [address] [place] [address] (Deal with loss & grief, anxiety, marital difficulties) Homebound/Mental Health Services 87364 [facility], [address] [place] [address] (Provide in-home mental services to people who are incapable of leaving their homes) Organization for Needs of the Elderly Senior Service/Resource Center [address] [place] [address] [facility] 65[address]. Alfie [place], [place] 98[address] PSYCHIATRIC OUTPATIENT SERVICES [facility] Partial Hospitalization and Intensive Outpatient Program (Managed Care and [place] Only)37797 Rick Nelson [facility] [phone] [facility] Partial Hospitalization and Outpatient [id number] Rick Velasquez [address] [place], [place] [phone] [facility] Partial Hospitalization and Outpatient [id number] Alfie Velasquez [place], [place] [phone] [facility] Center [id number] [address]as[address] [place], [place] [phone] [facility] Partial Hospitalization and Outpatient [id number] audeliaVeterans Affairs Medical Center-Tuscaloosa Alfie NavarroSYLVANIA, [phone]
--- NOTE | 2020-08-19 11:27 | NUR ---
TRANSPORT ETA 45 MINS WITH [facility].
--- NOTE | 2020-08-19 12:29 | NUR ---
THE PATIENT IN STABLE CONDITION AND GOT TRANSFERED TO [facility] VIA ARRANGED TRANSPO.
[2020-08-19 12:30] VITALS: BP 110/68
== END 2020-08-19 12:30 ==
LOC: ER 23:04
DX: F25.9 Schizoaffective disorder, unspecified (principal); R45.851 Suicidal ideations; Z20.822 Contact with and (suspected) exposure to COVID-19; F19.10 Other psychoactive substance abuse, uncomplicated
CPT/HCPCS: 36415; 80048; 80076; 80143; 80307; 80320; 81003; 85007; 85025; 87426; 99285; C9803; G0480

== ENCOUNTER 2020-09-01 10:31 | Emergency (ER) | payer OTHER ==
[~2020-09-01] VITALS: Ht 180.3 cm; Wt 74.8 kg
--- NOTE | 2020-09-01 10:48 | NUR ---
COVID SWAB DONE AND SENT TO THE LAB
--- NOTE | 2020-09-01 11:20 | NUR ---
Slab Miller Operator consult: director of residential services consult requested for suicidal ideation and homelessness. Patient is a 59-year-old, male. SW met with patient at the waiting room in the emergency department. Patient was alert and oriented x4. Patient presented calm and appeared well-groomed. Per chart, patient presented to the emergency department on 09/01/20 with complaints of auditory hallucinations telling him to harm himself. Patient stated that he has been homeless for the last year. Patient reported that he has been staying with his cousin for the last three months. Patient reported that he receives [employer] as a source of income. SW assessed patient's history of substance use and patient reported no history or current substance use. SW assessed patient's history of mental illness. Patient reported a history of Schizoaffective Disorder, Bipolar Disorder and Depression. Patient stated that he has been taking his psychiatric medication which includes, Prozac, Seroquel, and Buspar. Patient reported current auditory hallucinations and stated, "I hear voices telling me to harm myself and that I'm worthless." Patient denied history of visual hallucinations. Patient stated that his auditory hallucinations are telling him to cut his wrists. Patient denied homicidal ideation. SW offered the patient homeless and outpatient mental health resources. Patient accepted the resources and thanked SW. Patient signed the homeless waiver and SW filed waiver in the patient's chart. Patient requested voluntary psychiatric admission. GLORY will fax clinicals to [facility], , for review. PLAN: GLORY will fax clinicals to [facility], , for review. No further SS intervention at this time, however, SW will remain available as needed. RESOURCES: Year-round shelters: [facility] [place] [address] [place] [address] ; [facility] [place] [address] [place] [address]; [facility] [id number] [facility]. [facility] [address] SPA 4 | [facility] Provider: First to Serve Address: [address] [place] [address], [facility] # of Beds: 48 Population Served: [facility] Provider: First to Serve Address: [address] [facility], [address] # of Beds: 73 Population Served: Coed SPA 6 | [facility] Provider: [facility] Last Address: [address] [facility], [address] # of Beds: 63 Population Served: Coed SPA 3 | [facility] Provider: [facility] [place] Address: [address] [facility], [address] # of Beds: 75 Population Served: Coed SPA 8 | [facility] Provider: [facility] [place] Address: [address] [facility], [address] # of Beds: 80 Population Served: Coed [facility] 1 | [facility] Provider: [facility] [place] Address: [id number] [place] [address], [address] # of Beds: 85 Population Served: [facility] 2 | [facility] Provider: Larisa [facility] Address: Confidential (please call for location) # of Beds: 52 Population Served: [facility] 4 | [facility] Provider: [facility] Address: [address] [facility] [facility], [address] # of Beds: 49 Population Served: [facility] Provider: First To Serve Address: [address] [place] [address], [address] # of Beds: 27 Population Served: Karon Hygiene: [facility]: [address] Jean Paulmanisha Rosario ; [facility] [address] [facility] ; [facility] [address] . Food Resources: [place] [employer] [facility] at [facility]- [address] [place]; Meet Each Need with Dignity ([facility]) [address] [facility]; [facility] [address] [facility]; [facility] [address] Madonna shea [place]. Mental Health resources provided: [facility] [address] [place] [address] ; [facility] [address] [facility] [address], [place], [place] [id number] ; [facility] [address] [facility] [place], [place] [id number] ; [facility] [address] [place], [place] [id number] Healthcare Clinics: [facility] [address] [facility], [address] [place]. [place] ; [facility] [address] [place] [address]; [facility] [address] [facility]. [place] [phone] Counseling--Outpatient [facility] [address], [address] [place], [place] [id number] (Specializes in in-depth psychotherapy for emotional distress: anxiety, depression, interpersonal conflicts, life transitions, childhood abuse) PSYCHIATRIC OUTPATIENT SERVICES [facility] Partial Hospitalization and Intensive Outpatient Program (Managed Care and [place] Only) [address] [facility]. [facility] [id number] [facility] Partial Hospitalization and Outpatient Program [address] [place], [place] [id number] [facility] Partial Hospitalization and Outpatient Program [address] [facility]. [place], [place] [phone] [facility] Mental Health [facility] [employer] [address] [facility]. [address] [place], [place] [address] [facility] Partial Hospitalization and Outpatient Program [address] [place], [place] [phone]
--- NOTE | 2020-09-01 11:30 | NUR ---
Real Estate Intern note: Patient requested voluntary psychiatric admission. GLORY faxed clinicals to [facility], , for review.
[2020-09-01 12:42] LABS: BASOPHILS # (AUTO) 0.1 K/uL (0.0-0.2); EOSINOPHILS % (AUTO) 2.7 % (0.0-6.0); HEMATOCRIT 40 % (39-51); HEMOGLOBIN 13.6 g/dL (13.5-17.5); LYMPHOCYTES # (AUTO) 2.9 K/uL (0.8-4.8); LYMPHOCYTES % (AUTO) 38.5 % (20.0-44.0); MEAN CORPUSCULAR HGB CONC 34 g/dl (31.0-36.0); MEAN CORPUSCULAR VOLUME 80 fL (80-96); MONOCYTES # (AUTO) 1.1 K/uL (0.1-1.30); MONOCYTES % (AUTO) 14.3 % (2.0-12.0); NEUTROPHILS # (AUTO) 3.2 K/uL (1.8-8.9); NEUTROPHILS % (AUTO) 43.5 % (43.0-81.0); PLATELET COUNT (AUTO) 247 K/uL (150-450); RED BLOOD CELL COUNT(AUTO) 4.97 MIL/uL (4.5-6.0); WHITE BLOOD COUNT (AUTO) 7.4 K/uL (4.3-11.0)
[2020-09-01 12:49] LABS: CALCIUM, SERUM 8.4 mg/dL (8.5-10.1); CARBON DIOXIDE 27 mmol/L (21-32); CHLORIDE 106 mmol/L (98-107); CREATININE 1.1 mg/dL (0.6-1.3); GLUCOSE 102 mg/dL (74-106); POTASSIUM 4.4 mmol/L (3.5-5.1); SODIUM SERUM 139 mmol/L (136-145); UREA NITROGEN, BLOOD 20 mg/dL (7-18)
[2020-09-01 12:55] LABS: ALANINE AMINOTRANSFERASE 29 U/L (12-78); ALBUMIN 3.4 g/dL (3.4-5.0); ALCOHOL, BLOOD < 3 mg/dL (0-0); ALKALINE PHOSPHATASE 58 U/L (46-116); ASPARTATE AMINOTRANSFERASE 18 U/L (15-37); BILIRUBIN,TOTAL 0.1 mg/dL (0.2-1.0); TOTAL PROTEIN, SERUM 7.1 g/dL (6.4-8.2)
[2020-09-01 13:02] LABS: BILIRUBIN,URINE Negative (NEGATIVE); COLOR,URINE YELLOW (YELLOW); LEUKOCYTE ESTERASE ,URINE Negative (NEGATIVE); NITRITE, URINE Negative (NEGATIVE); PROTEIN,URINE Negative (NEGATIVE); UGLUCOSE Negative (NEGATIVE); UROBILINOGEN,URINE 0.2 EU/dL (0.2)
--- NOTE | 2020-09-01 13:02 | NUR ---
THE PATIENT IS HAVING LUNCH. IN NO APPARENT DISTRESS.
[2020-09-01 13:03] LABS: ACETAMINOPHEN 0 ug/ml (10-30)
--- NOTE | 2020-09-01 15:25 | NUR ---
THE PATIENT ALERT AND ORIENTED X4. DENIES PAIN. IN ROOM AIR AND DENIES SOB. RESPIRATION REGULAR AND UNLABORED.
--- NOTE | 2020-09-01 15:25 | NUR ---
ABDULAZIZ CALLED PT ACCEPTED TO [facility] [address] [address] NOEL CALL [phone]
--- NOTE | 2020-09-01 15:29 | NUR ---
[facility] CALLED ETA 45 MINS.
--- NOTE | 2020-09-01 16:15 | NUR ---
REPORT GIVEN TO NOMI AT [facility]. TRANSPORTED IN STABLE CONDITION.
[2020-09-01 16:16] VITALS: BP 115/76
== END 2020-09-01 16:20 ==
LOC: ER 10:35
DX: F23 Brief psychotic disorder (principal); R45.851 Suicidal ideations; Z20.822 Contact with and (suspected) exposure to COVID-19; Z82.49 Family history of ischemic heart disease and other diseases of the circulatory system; F25.9 Schizoaffective disorder, unspecified
CPT/HCPCS: 36415; 80048; 80076; 80143; 80307; 80320; 81003; 85025; 87426; 99285; C9803; G0480

== ENCOUNTER 2020-09-18 01:25 | Emergency (ER) | payer OTHER ==
[~2020-09-18] VITALS: Ht 180.3 cm; Wt 74.8 kg
--- NOTE | 2020-09-18 01:52 | NUR ---
PT AAOX4. BIBSELF C/O SI WITH PLAN TO SUICIDE BY EVIDENCE SPECIALIST. -HI. REQUESTING VOLUNTARY PSYCH ADMISSION TO [facility]. PLACED IN A GOWN, ON MONITOR, AND PULSE OX. BELONINGS PLACED IN LOCKER. SITTER AT BEDSIDE.
--- NOTE | 2020-09-18 01:53 | NUR ---
covid swab and blood sent to lab
[2020-09-18 01:56] LABS: BASOPHILS # (AUTO) 0.1 K/uL (0.0-0.2); BASOPHILS % (AUTO) 1.2 % (0.0-2.0); EOSINOPHILS % (AUTO) 0.9 % (0.0-6.0); HEMATOCRIT 43 % (39-51); HEMOGLOBIN 14.6 g/dL (13.5-17.5); LYMPHOCYTES # (AUTO) 2.9 K/uL (0.8-4.8); MEAN CORPUSCULAR HGB CONC 34 g/dl (31.0-36.0); MEAN CORPUSCULAR VOLUME 80 fL (80-96); MONOCYTES # (AUTO) 1.2 K/uL (0.1-1.30); MONOCYTES % (AUTO) 12.5 % (2.0-12.0); NEUTROPHILS % (AUTO) 54.4 % (43.0-81.0); PLATELET COUNT (AUTO) 240 K/uL (150-450); RED BLOOD CELL COUNT(AUTO) 5.37 MIL/uL (4.5-6.0); WHITE BLOOD COUNT (AUTO) 9.3 K/uL (4.3-11.0)
--- NOTE | 2020-09-18 02:01 | NUR ---
urine sent to lab
[2020-09-18 02:06] LABS: CALCIUM, SERUM 9.6 mg/dL (8.5-10.1); CARBON DIOXIDE 29 mmol/L (21-32); CHLORIDE 105 mmol/L (98-107); CREATININE 1.5 mg/dL (0.6-1.3); GLUCOSE 93 mg/dL (74-106); SODIUM SERUM 142 mmol/L (136-145); UREA NITROGEN, BLOOD 20 mg/dL (7-18)
[2020-09-18 02:06] LABS: BILIRUBIN,URINE Negative (NEGATIVE); COLOR,URINE YELLOW (YELLOW); LEUKOCYTE ESTERASE ,URINE Negative (NEGATIVE); NITRITE, URINE Negative (NEGATIVE); PROTEIN,URINE Negative (NEGATIVE); UGLUCOSE Negative (NEGATIVE); UROBILINOGEN,URINE 0.2 EU/dL (0.2)
[2020-09-18 02:09] LABS: ALANINE AMINOTRANSFERASE 23 U/L (12-78); ALCOHOL, BLOOD < 3 mg/dL (0-0); ALKALINE PHOSPHATASE 62 U/L (46-116); ASPARTATE AMINOTRANSFERASE 16 U/L (15-37); BILIRUBIN,DIRECT 0.1 mg/dL (0.0-0.2); BILIRUBIN,TOTAL 0.4 mg/dL (0.2-1.0); TOTAL PROTEIN, SERUM 8.4 g/dL (6.4-8.2)
[2020-09-18 02:10] LABS: ACETAMINOPHEN 0 ug/ml (10-30)
[2020-09-18 02:32] LABS: BACTERIA,URINE None seen /HPF (None Seen); RBC,URINE 0-2 /HPF (0-2); SQUAMOUS EPITHELIAL CELL,UR Few /HPF (None Seen); WBC,URINE 0-2 /HPF (0-3)
--- NOTE | 2020-09-18 02:44 | NUR ---
CLINICAL AND FACESHEET FAXED TO [facility]TAKE FOR VOLUNTARY PSYCH ADMISSION.
--- NOTE | 2020-09-18 03:54 | NUR ---
PT ACCEPTED AT [facility]. INTAKE WILL CALL FOR ACCEPTING MD AND PHONE NUMBER FOR REPORT ONCE THEY HAVE A BED AVAILABLE FOR PT.
--- NOTE | 2020-09-18 05:40 | NUR ---
PT ACCEPTED TO [facility] GIVE REPORT AFTER 08:30 [phone] ACCEPTING MD AND ROOM NUMBER WILL BE PROVIDED UPON REPORT
--- NOTE | 2020-09-18 07:15 | NUR ---
ASSESSED PT ON BED AWAKE AND ALERT, NOT IN RESPIRATORY DISTRESS, V/S STABLE, KEPT RESTED AND COMFORTABLE. SITTER AT BEDSIDE. WILL CONTINUE TO MONITOR.
--- NOTE | 2020-09-18 08:38 | NUR ---
TRANSPORT CALLED [facility] HAS AN ETA OF 0915 PER SHAILESH.
--- NOTE | 2020-09-18 08:52 | NUR ---
report given to aide milian from [facility].
--- NOTE | 2020-09-18 10:22 | NUR ---
REPORT GIVEN TO EMS FOR PT TRANSFER TO [facility]
[2020-09-18 10:28] VITALS: BP 137/80
== END 2020-09-18 10:29 ==
LOC: ER 01:25
DX: R45.851 Suicidal ideations (principal); F14.10 Cocaine abuse, uncomplicated; Z20.822 Contact with and (suspected) exposure to COVID-19; F25.9 Schizoaffective disorder, unspecified
CPT/HCPCS: 36415; 80048; 80076; 80143; 80307; 80320; 81001; 85025; 87426; 99285; C9803; G0480

== ENCOUNTER 2020-09-24 19:33 | Emergency (ER) | payer OTHER ==
[~2020-09-24] VITALS: Ht 180.3 cm; Wt 74.8 kg
--- NOTE | 2020-09-24 19:40 | NUR ---
Pt bibself c/o si with plan to commit suicide by police. Pt aaox4 breathing evenly and unlabored. Pt changed into gown and belongings locked in locker. Pt given blanket and call light within reach. will continue to monitor.
--- NOTE | 2020-09-24 22:45 | NUR ---
Patient is resting comfortably in bed with eyes closed. Easily aroused. VSS
--- NOTE | 2020-09-24 23:57 | NUR ---
COVID SWAB SENT TO LAB
[2020-09-25 00:10] LABS: BASOPHILS # (AUTO) 0.1 K/uL (0.0-0.2); EOSINOPHILS % (AUTO) 3.5 % (0.0-6.0); HEMATOCRIT 41 % (39-51); HEMOGLOBIN 14.2 g/dL (13.5-17.5); LYMPHOCYTES # (AUTO) 3.8 K/uL (0.8-4.8); MEAN CORPUSCULAR HGB CONC 35 g/dl (31.0-36.0); MEAN CORPUSCULAR VOLUME 79 fL (80-96); MONOCYTES % (AUTO) 10.9 % (2.0-12.0); NEUTROPHILS # (AUTO) 3.8 K/uL (1.8-8.9); NEUTROPHILS % (AUTO) 42.6 % (43.0-81.0); PLATELET COUNT (AUTO) 250 K/uL (150-450); RED BLOOD CELL COUNT(AUTO) 5.15 MIL/uL (4.5-6.0); WHITE BLOOD COUNT (AUTO) 8.9 K/uL (4.3-11.0)
[2020-09-25 00:25] LABS: ACETAMINOPHEN < 2 ug/ml (10-30); ALANINE AMINOTRANSFERASE 41 U/L (12-78); ALBUMIN 3.6 g/dL (3.4-5.0); ALCOHOL, BLOOD < 3 mg/dL (0-0); ALKALINE PHOSPHATASE 58 U/L (46-116); ASPARTATE AMINOTRANSFERASE 25 U/L (15-37); BILIRUBIN,DIRECT 0.1 mg/dL (0.0-0.2); BILIRUBIN,TOTAL 0.3 mg/dL (0.2-1.0); CALCIUM, SERUM 8.4 mg/dL (8.5-10.1); CARBON DIOXIDE 26 mmol/L (21-32); CHLORIDE 106 mmol/L (98-107); CREATININE 1.2 mg/dL (0.6-1.3); GLUCOSE 111 mg/dL (74-106); POTASSIUM 3.9 mmol/L (3.5-5.1); SODIUM SERUM 141 mmol/L (136-145); TOTAL PROTEIN, SERUM 7.6 g/dL (6.4-8.2); UREA NITROGEN, BLOOD 12 mg/dL (7-18)
[2020-09-25 00:56] LABS: BILIRUBIN,URINE Negative (NEGATIVE); COLOR,URINE YELLOW (YELLOW); LEUKOCYTE ESTERASE ,URINE Negative (NEGATIVE); NITRITE, URINE Negative (NEGATIVE); PROTEIN,URINE Negative (NEGATIVE); UGLUCOSE Negative (NEGATIVE); UROBILINOGEN,URINE 0.2 EU/dL (0.2)
[2020-09-25 01:53] LABS: BACTERIA,URINE None seen /HPF (None Seen); SQUAMOUS EPITHELIAL CELL,UR Rare /HPF (None Seen); WBC,URINE 0-2 /HPF (0-3)
[2020-09-25 01:56] LABS: RBC,URINE 2 /HPF (0-2)
--- NOTE | 2020-09-25 02:30 | NUR ---
pt attached to monitor, vss
--- NOTE | 2020-09-25 05:11 | NUR ---
PT ACCEPTED AT [facility] DR. GEMMA RUIZ FOR REPORT [phone] CRUZ
--- NOTE | 2020-09-25 05:18 | NUR ---
called call the car. reservation # [phone]. will call back with [facility] ambulance company
--- NOTE | 2020-09-25 05:25 | NUR ---
[facility] ambulance eta 0800
--- NOTE | 2020-09-25 09:00 | NUR ---
CALLED [facility] [phone] HERMINIA VIRAMONTES ETA IS 1000
--- NOTE | 2020-09-25 09:45 | NUR ---
[facility] CALLED. STATES DELAY IN ETA DUE TO TABLET MALFUNCTION.
--- NOTE | 2020-09-25 10:12 | NUR ---
CALLED [facility] FOR TRANSPORT ETA 30 MINS PER SHAILESH.
--- NOTE | 2020-09-25 10:38 | NUR ---
REPORT GIVEN TO EMS FOR PT TRANSFER TO [facility].
[2020-09-25 10:39] VITALS: BP 133/74
== END 2020-09-25 10:39 ==
LOC: ER 19:41
DX: R45.851 Suicidal ideations (principal); Z20.822 Contact with and (suspected) exposure to COVID-19; F25.9 Schizoaffective disorder, unspecified
CPT/HCPCS: 36415; 80048; 80076; 80143; 80307; 80320; 81001; 85025; 87426; 99285; C9803; G0480

== ENCOUNTER 2021-09-13 02:36 | Emergency (ER) | payer OTHER ==
[~2021-09-13] VITALS: Ht 175.3 cm; Wt 72.6 kg
--- NOTE | 2021-09-13 02:50 | NUR ---
bibs c/o si with plan to "jump into traffic" seeking voluntary admission to psych facility. patient alert and oriented x3. ambulatory with non labored breathing in bed 18 on seen by md at triage. patients belongings taken and placed in locker. in a gown.
--- NOTE | 2021-09-13 02:55 | NUR ---
URINE COLLECTED AND SENT TO LAB
--- NOTE | 2021-09-13 02:55 | NUR ---
COVID SWAB DONE AND SENT TO LAB
[2021-09-13 03:19] LABS: BASOPHILS # (AUTO) 0.1 K/uL (0.0-0.2); BASOPHILS % (AUTO) 0.7 % (0.0-2.0); EOSINOPHILS % (AUTO) 1.6 % (0.0-6.0); HEMATOCRIT 47 % (39-51); LYMPHOCYTES # (AUTO) 3.4 K/uL (0.8-4.8); LYMPHOCYTES % (AUTO) 31.9 % (20.0-44.0); MEAN CORPUSCULAR HGB CONC 34 g/dl (31.0-36.0); MEAN CORPUSCULAR VOLUME 80 fL (80-96); MONOCYTES # (AUTO) 1.6 K/uL (0.1-1.30); MONOCYTES % (AUTO) 14.8 % (2.0-12.0); NEUTROPHILS # (AUTO) 5.5 K/uL (1.8-8.9); PLATELET COUNT (AUTO) 314 K/uL (150-450); RED BLOOD CELL COUNT(AUTO) 5.85 MIL/uL (4.5-6.0); WHITE BLOOD COUNT (AUTO) 10.8 K/uL (4.3-11.0)
[2021-09-13 03:32] LABS: BILIRUBIN,URINE SMALL (NEGATIVE); COLOR,URINE YELLOW (YELLOW); LEUKOCYTE ESTERASE ,URINE NEGATIVE (NEGATIVE); NITRITE, URINE NEGATIVE (NEGATIVE); PH,URINE 5.5 (5.0-8.0); PROTEIN,URINE 30 mg/dl (NEGATIVE); UGLUCOSE NEGATIVE (NEGATIVE); UROBILINOGEN,URINE 0.2 EU/dL (0.2)
[2021-09-13 03:38] LABS: CALCIUM, SERUM 9.8 mg/dL (8.5-10.1); CARBON DIOXIDE 26 mmol/L (21-32); CHLORIDE 102 mmol/L (98-107); CREATININE 1.8 mg/dL (0.6-1.3); GLUCOSE 116 mg/dL (74-106); POTASSIUM 4.3 mmol/L (3.5-5.1); SODIUM SERUM 140 mmol/L (136-145); UREA NITROGEN, BLOOD 26 mg/dL (7-18)
[2021-09-13 03:44] LABS: ALANINE AMINOTRANSFERASE 66 U/L (12-78); ALBUMIN 4.4 g/dL (3.4-5.0); ALKALINE PHOSPHATASE 80 U/L (46-116); ASPARTATE AMINOTRANSFERASE 61 U/L (15-37); BILIRUBIN,DIRECT 0.2 mg/dL (0.0-0.2); BILIRUBIN,TOTAL 0.7 mg/dL (0.2-1.0); TOTAL PROTEIN, SERUM 9.9 g/dL (6.4-8.2)
[2021-09-13 03:45] LABS: ACETAMINOPHEN < 2 ug/ml (10-30); ALCOHOL, BLOOD < 3 mg/dL (0-0)
--- NOTE | 2021-09-13 06:30 | NUR ---
faxed facesheet and clinicals to [facility]
[2021-09-13 07:59] VITALS: BP 142/71
--- NOTE | 2021-09-13 09:55 | NUR ---
GLORY called [facility] TEL:[phone] fax:[phone] for update. Per Intake, they have received the clinicals and are waiting for feedback from nursing sepervisor.
--- NOTE | 2021-09-13 10:02 | NUR ---
[facility] CALLED WITH PT ACCEPTANCE INFO UNDER THE CARE OF DR. NOEL NUMBER FOR REPORT [phone] WILL RECEIVE A CALL BACK WITH PT TRANSPORT ETA
--- NOTE | 2021-09-13 10:09 | NUR ---
ETA FOR TRANSORT 1039
--- NOTE | 2021-09-13 10:22 | NUR ---
ATTEMPTED TO CALL FACILITY TO GIVE REPORT, NO ANSWER
--- NOTE | 2021-09-13 14:25 | NUR ---
SS consult requested for homelessness and suicidal ideation. Pt. is a 60-year-old male who was admitted to [facility] on 09/13/2021 due to auditory hallucinations and suicidal ideation. Upon SS consult pt. is alert and oriented x4. Pt. appears unkempt and does not provide appropriate eye contact. Pt. presents with a depressed mood and congruent affect. Pt. was cooperative throughout the interview. project planner explored pt.s current living situation. Pt. stated he is currently staying at his friends house in the [facility] and . Pt. stated he could not remember the address. project planner offered pt. Homeless resources and the pt. Accepted. project planner explored pt.s substance use history. Pt. Stated he did cocaine and then wanted to run into traffic. Pt. Stated he drinks alcohol once or twice a month. project planner offered pt. Substance use resources and pt. Accepted. project planner explored pt.s psychiatric diagnosis. Pt. stated he is diagnosed with schizoaffective disorder. Pt. Stated he has had two previous suicide attempts. Pt. Stated he is currently suicidal but does not have a plan. Pt. Stated he wanted to be referred to [facility] [[address] [place] [address]]. Pt. denied visual and auditory hallucinations. Pt. denied homicidal ideation. Plan: Upon Discharge, pt. stated he wanted to be discharged to [facility] [[address] [place] [address]]. Pt. signed homeless waiver and it was placed I the chart. SW provided the pt. with the following homeless resources: Year-round shelters: [facility] [place] [address] [place], [place] [phone] ; [facility] [place] [address] [place] [address]; [facility] [id number] [facility]. [facility] [address] Hygiene: [facility]: [address] [address] [place] ; [facility] [facility] [address] [facility] ; [facility] [address] . Food Resources: [place] [employer] [facility] at [facility]- [address] [facility]. [place]; Meet Each Need with Dignity ([facility]) [address] [place]; [facility] [address] [facility]; [facility] [address] [facility]. Mental Health resources provided: [facility] [address] [place], [place] [phone] ; [facility] Health [place] [address] [facility] [address], [place], [place] [phone] ; [facility] [address] [place] Thelma Hickman[place], [place] [phone] ; [facility] [address] [place], [place] [address] Healthcare Clinics: [facility] [address] [facility], [address] [place]. [place] ; [facility] [address] [facility] [address] [place] [address]; [facility] [address] [facility]. [place] [phone]
== END 2021-09-13 10:29 ==
LOC: ER 02:36
DX: R45.851 Suicidal ideations (principal); F25.9 Schizoaffective disorder, unspecified; F31.9 Bipolar disorder, unspecified; Z59.01 Sheltered homelessness; Z20.822 Contact with and (suspected) exposure to COVID-19
CPT/HCPCS: 99285; 85025; 80048; 80076; 81003; 36415; 87426; 80143; 80320; 80307; C9803; G0480

== ENCOUNTER 2021-11-16 07:29 | Emergency (ER) | payer OTHER ==
[~2021-11-16] VITALS: Ht 180.3 cm; Wt 81.6 kg
--- NOTE | 2021-11-16 07:45 | NUR ---
covid swab collected
--- NOTE | 2021-11-16 07:49 | NUR ---
TO ER 18,ALL BELONGINGS REMOVED,GOWN,SECURITY CALLED FOR WANDING
--- NOTE | 2021-11-16 07:50 | NUR ---
urine sample collected and sent to lab
[2021-11-16 08:17] LABS: BASOPHILS % (AUTO) 0.5 % (0.0-2.0); EOSINOPHILS % (AUTO) 3.6 % (0.0-6.0); HEMATOCRIT 44 % (39-51); HEMOGLOBIN 14.6 g/dL (13.5-17.5); LYMPHOCYTES # (AUTO) 2.5 K/uL (0.8-4.8); LYMPHOCYTES % (AUTO) 34.1 % (20.0-44.0); MEAN CORPUSCULAR HGB CONC 33 g/dl (31.0-36.0); MEAN CORPUSCULAR VOLUME 82 fL (80-96); MONOCYTES # (AUTO) 0.9 K/uL (0.1-1.30); MONOCYTES % (AUTO) 12.5 % (2.0-12.0); NEUTROPHILS # (AUTO) 3.6 K/uL (1.8-8.9); NEUTROPHILS % (AUTO) 49.3 % (43.0-81.0); PLATELET COUNT (AUTO) 242 K/uL (150-450); RED BLOOD CELL COUNT(AUTO) 5.43 MIL/uL (4.5-6.0); WHITE BLOOD COUNT (AUTO) 7.3 K/uL (4.3-11.0)
[2021-11-16 08:23] LABS: BILIRUBIN,URINE SMALL (NEGATIVE); COLOR,URINE YELLOW (YELLOW); LEUKOCYTE ESTERASE ,URINE NEGATIVE (NEGATIVE); NITRITE, URINE NEGATIVE (NEGATIVE); PROTEIN,URINE NEGATIVE (NEGATIVE); UGLUCOSE NEGATIVE (NEGATIVE)
[2021-11-16 08:29] LABS: CALCIUM, SERUM 8.9 mg/dL (8.5-10.1); CARBON DIOXIDE 29 mmol/L (21-32); CHLORIDE 103 mmol/L (98-107); GLUCOSE 89 mg/dL (74-106); POTASSIUM 3.7 mmol/L (3.5-5.1); SODIUM SERUM 138 mmol/L (136-145); UREA NITROGEN, BLOOD 8 mg/dL (7-18)
[2021-11-16 08:34] LABS: BACTERIA,URINE None seen /HPF (None Seen); MUCUS,URINE Many /LPF (None Seen); SQUAMOUS EPITHELIAL CELL,UR Rare /HPF (None Seen)
[2021-11-16 08:35] LABS: ALANINE AMINOTRANSFERASE 12 U/L (12-78); ALBUMIN 3.7 g/dL (3.4-5.0); ALCOHOL, BLOOD < 3 mg/dL (0-0); ALKALINE PHOSPHATASE 63 U/L (46-116); ASPARTATE AMINOTRANSFERASE 13 U/L (15-37); BILIRUBIN,DIRECT 0.2 mg/dL (0.0-0.2); BILIRUBIN,TOTAL 0.6 mg/dL (0.2-1.0); TOTAL PROTEIN, SERUM 7.6 g/dL (6.4-8.2)
[2021-11-16 08:40] LABS: ACETAMINOPHEN < 10 ug/ml (10-30)
--- NOTE | 2021-11-16 14:06 | NUR ---
CALLED [facility] PER LAUREN WILL UPDATE US WHEN THEY HAVE ACCEPTANCE INFO.
--- NOTE | 2021-11-16 16:26 | NUR ---
ACCEPTED TO [facility] UNDER DR. ELLIOTT PLEASE CALL [phone] FOR REPORT ETA 1700.
[2021-11-20 12:36] VITALS: BP 146/90
== END 2021-11-16 16:34 ==
LOC: ER 07:50
DX: F23 Brief psychotic disorder (principal); R45.851 Suicidal ideations; Z20.822 Contact with and (suspected) exposure to COVID-19; F25.9 Schizoaffective disorder, unspecified; F17.200 Nicotine dependence, unspecified, uncomplicated; R82.5 Elevated urine levels of drugs, medicaments and biological substances
CPT/HCPCS: 99285; 85025; 80048; 80076; 81001; 36415; 87426; 80143; 80320; 80307; C9803; 87086-TC; G0480

== ENCOUNTER 2022-02-14 07:54 | Emergency (ER) | payer OTHER ==
[~2022-02-14] VITALS: Ht 180.3 cm; Wt 79.4 kg
--- NOTE | 2022-02-14 08:11 | NUR ---
REQUESTING [facility] SI PLAN " CUT SELF".
--- NOTE | 2022-02-14 08:20 | NUR ---
URINE SAMPLE AND COVID SWAB OBTAINED AND SENT TO LAB
[2022-02-14 08:30] LABS: BASOPHILS % (AUTO) 0.4 % (0.0-2.0); EOSINOPHILS % (AUTO) 2.2 % (0.0-6.0); HEMATOCRIT 44 % (39-51); HEMOGLOBIN 14.6 g/dL (13.5-17.5); LYMPHOCYTES # (AUTO) 2.8 K/uL (0.8-4.8); LYMPHOCYTES % (AUTO) 41.2 % (20.0-44.0); MEAN CORPUSCULAR HGB CONC 33 g/dl (31.0-36.0); MEAN CORPUSCULAR VOLUME 81 fL (80-96); MONOCYTES # (AUTO) 0.7 K/uL (0.1-1.30); MONOCYTES % (AUTO) 10.4 % (2.0-12.0); NEUTROPHILS # (AUTO) 3.1 K/uL (1.8-8.9); NEUTROPHILS % (AUTO) 45.8 % (43.0-81.0); PLATELET COUNT (AUTO) 250 K/uL (150-450); RED BLOOD CELL COUNT(AUTO) 5.47 MIL/uL (4.5-6.0); WHITE BLOOD COUNT (AUTO) 6.8 K/uL (4.3-11.0)
[2022-02-14 08:35] LABS: BILIRUBIN,URINE 1+ (NEGATIVE); COLOR,URINE YELLOW (YELLOW); LEUKOCYTE ESTERASE ,URINE NEGATIVE (NEGATIVE); NITRITE, URINE POSITIVE (NEGATIVE); PROTEIN,URINE NEGATIVE (NEGATIVE); UGLUCOSE NEGATIVE (NEGATIVE)
[2022-02-14 08:36] LABS: CALCIUM, SERUM 8.8 mg/dL (8.5-10.1); CARBON DIOXIDE 28 mmol/L (21-32); CHLORIDE 105 mmol/L (98-107); CREATININE 1.2 mg/dL (0.6-1.3); GLUCOSE 94 mg/dL (74-106); POTASSIUM 3.5 mmol/L (3.5-5.1); SODIUM SERUM 140 mmol/L (136-145); UREA NITROGEN, BLOOD 7 mg/dL (7-18)
[2022-02-14 08:38] LABS: BACTERIA,URINE Rare /HPF (None Seen); MUCUS,URINE Moderate /LPF (None Seen); SQUAMOUS EPITHELIAL CELL,UR Few /HPF (None Seen); WBC,URINE 0-2 /HPF (0-3)
[2022-02-14 08:42] LABS: ACETAMINOPHEN 0 ug/ml (10-30); ALANINE AMINOTRANSFERASE 12 U/L (12-78); ALBUMIN 3.7 g/dL (3.4-5.0); ALCOHOL, BLOOD < 3 mg/dL (0-0); ALKALINE PHOSPHATASE 62 U/L (46-116); ASPARTATE AMINOTRANSFERASE 12 U/L (15-37); BILIRUBIN,DIRECT 0.1 mg/dL (0.0-0.2); BILIRUBIN,TOTAL 0.3 mg/dL (0.2-1.0); TOTAL PROTEIN, SERUM 7.6 g/dL (6.4-8.2)
--- NOTE | 2022-02-14 10:37 | NUR ---
FAXED CLINICALS TO [facility].
--- NOTE | 2022-02-14 12:25 | NUR ---
ACCEPTED TO [facility] UNDER DR. MORENO PLEASE CALL [phone] UNIT TWO FOR REPORT. WILL INFORM OF DIGITAL PRESS OPERATOR ETA.
--- NOTE | 2022-02-14 12:55 | NUR ---
Ari bruce in [facility] - 02/14/22 at 1256 by LELO chart picker scheduled for 13:30
--- NOTE | 2022-02-14 13:00 | NUR ---
pt report given to charge nurse at unit 2 [facility]
--- NOTE | 2022-02-14 13:06 | NUR ---
Patient discharged to [facility] in stable condition accompanied by transporter. Written and verbal after care instructions given. Patient verbalizes understanding of instruction. All belongings returned to pt.
[2022-02-14 13:07] VITALS: BP 133/80
== END 2022-02-14 13:16 ==
LOC: ER 07:56
DX: R45.851 Suicidal ideations (principal); F25.9 Schizoaffective disorder, unspecified; Z20.822 Contact with and (suspected) exposure to COVID-19; R82.5 Elevated urine levels of drugs, medicaments and biological substances
CPT/HCPCS: 99285; 85025; 80048; 87086; 80076; 81001; 36415; 87426; 80143; 80320; 80307; C9803; G0480